=== PATIENT | female | born 1965 | race Caucasian/White ===

== ENCOUNTER 2021-09-25 08:28 | Outpatient (CLI) | payer MEDICARE, MEDICAID, SELFPAY ==
--- NOTE | ~2021-09-25 | PE_ITS ---
EXAMINATION: PET skull to mid thigh DATE: 09/25/2021 13:00 INDICATION: Lung mass. TECHNIQUE: Blood glucose level was 121 mg/dL. 10.609 mCi of 18-fluorodeoxyglucose (18-FDG) was admini stered i.v. Low dose computed tomography (CT) images were acquired from the base of the brain to the proximal thighs for attenuation correction and anatomic localization. Automated exposure control was employed. Dose-length product (DLP) was 842 mGy-cm. Positron emission tomography (PET) images were ac quired in the same distribution. COMPARISON: CT abdomen and pelvis 09/02/2015 FINDINGS: Head/neck: There is increased activity in the oral cavity, major salivary glands, and glottis without CT correlate, likely physiologic. There are no pathologically enlarged lymph nodes. Chest: There is mild emphysema. There is a 1.3 cm nodule in right lower lobe with maximum SUV of 2.1. No pleural effusion. The heart size is normal. No pericardial effusion. Abdomen/pelvis/proximal thighs: The liver is normal. The gallbladder is absent. The spleen, pancreas, adrenal glands, and kidneys are normal. There are no dilated loops of bowel. There is an anastomosis in the sigmoid colon. The appendix is not visualized. There are no pathologically enlarged lymph nod es. There is no free intraperitoneal fluid. There is an umbilical hernia containing fat. There is a b enign bone island in left ischium. IMPRESSION: 1. 1.3 cm nodule in right lung lower lobe with maximum SUV of 2.1 suspicious for primary bronchogeni c carcinoma. CT-guided biopsy is recommended. Reviewed, dictated and finalized at location A. ROLLING MACHINE TENDER IMPRESSION: 1. 1.3 cm nodule in right lung lower lobe with maximum SUV of 2.1 suspicious f or primary bronchogenic carcinoma. CT-guided biopsy is recommended.
[2021-09-25 09:27] LABS: Glucose Point of Care 121 mg/dl (65-105)
== END 2021-09-25 08:29 | disposition home or self-care (01) ==
LOC: ANHIMG 08:33
PROVIDERS: PCP Internal Medicine; Visit Provider Nurse Practitioner
DX: R91.8 Other nonspecific abnormal finding of lung field (principal); R91.1 Solitary pulmonary nodule
CPT/HCPCS: 78815; A9552

== ENCOUNTER → 2021-10-11 00:05 | Outpatient (CLI) | payer MEDICARE, MEDICAID, SELFPAY ==
[2021-10-11 12:38] LABS: SARS-CoV-2 RNA PCR Negative
== END ==
PROVIDERS: Radiology Diagnostic Radiology; PCP Internal Medicine; Visit Provider Nurse Practitioner
DX: Z01.812 Encounter for preprocedural laboratory examination (principal); Z20.822 Contact with and (suspected) exposure to COVID-19
CPT/HCPCS: C9803; U0003; U0005

== ENCOUNTER 2021-10-15 08:39 | Outpatient (CLI) | payer MEDICARE, MEDICAID, SELFPAY ==
[2021-10-08 11:17] VITALS: BMI 33.8
--- NOTE | 2021-10-08 11:27 | PC.NURSE ---
Report to the Outpatient Waiting Room, entrance under the green pavilion located off [facility], at time 0900 on date 10/15/21. OR Time: 1100. - You will be asked a series of questions to screen for COVID 19 for your protection. - A mask is required within the hospital. - No visitors are allowed at this time. Preoperative COVID Testing Requirements: COVID TEST 10/11 AT 0950 No COVID Test needed if: (proof is required; if not received patient will have Rapid Test prior to entry) - Patient has received COVID Vaccine at least 14 days prior to procedure date or - Patient has positive COVID test result within last 90 days of surgery date. COVID Test needed if above criteria is not met If not COVID vaccinated a COVID test must be conducted within 72 hours of surgery and patient is asked to isolate self from time of testing until procedure. You will go to the [facility] for your COVID testing. The [facility] is located at the corner of [address] [facility]. You will only be called if COVID results are positive and your surgeon may reschedule your elective surgery date. - No food OR DRINK FOR 6 HOURS PRIOR TO PROCEDURE Take the following medications with a SIP of water the morning of surgery: NONE Medications to discontinue per physician: ASPIRIN Date to take last dose: 7 DAYS PRIOR TO PROCEDURE Please no make-up, nail indian, hairspray, perfume, deodorant, or body powder the day of surgery. No jewelry (including any body piercings) or valuables the day of surgery, leave them at home. Please take a shower or bath the night before, or the morning of, surgery with an antibacterial soap. Wear comfortable, loose fitting clothing. - Jewelry must be removed prior to entering the operating room. Rings and piercings that are not removed may be cut off. - The hospital will not accept responsibility for valuables. - Please leave all valuables, including medications, at home the day of surgery. If you are going home after surgery, a licensed haul truck driver must drive you home. - NO public transportation without another adult. - We recommend that an adult stay with you for 24 hours following discharge. - We also recommend that you do not drive, make important decision, drink alcoholic beverages, or take any drugs that were not prescribed by your health care provider for at least 24 hours after your discharge time. Follow any additional instructions given to you from your surgeon. Telephone instructions given to ALEXYS NGUYEN and asked if any additional questions and then verbalized understanding. Patient advised to call surgeon office or pre surgery nurse liaison [phone] if any additional questions.
[2021-10-15] VITALS (8 sets, daily range): BP systolic 104–148; BP diastolic 59–72; PULSE 75–86; RESP 16; TEMP 36.7; O2SAT 97–99
--- NOTE | ~2021-10-15 | CT_ITS ---
EXAMINATION: CT biopsy lung w/imaging DATE: 10/15/2021 11:21 INDICATION: Right lung lower lobe nodule. TECHNIQUE: The procedure including the risks, benefits, and alternatives and possibility of chest tub e placement were discussed with the patient. Risks discussed included infection, approximately 1/20 r isk of symptomatic hemorrhage beyond mild hemoptysis, approximately 1/3 risk of pneumothorax, approxi mately 1/10 risk of pneumothorax severe enough to warrant chest tube placement, and rarely . The patient understood the risks and agreed to proceed. The patient was placed prone. The skin overlyin g the right chest was prepped and draped in sterile fashion. Anesthetic was administered with 1% lid ocaine subcutaneously. A 19 gauge outer needle was advanced under CT guidance to the lesion of inter est. A 20 gauge core biopsy needle was then used to obtain 3 core biopsy specimens. The needle was re moved and the entry site was cleaned and dressed. The mA was adjusted according to patient size. Iter ative reconstruction technique was employed. The dose-length product was 217.08 mGy-cm. The patient e xperienced hemoptysis at the end of procedure. She denied shortness of breath or chest pain. FINDINGS: CT images demonstrate the outer needle tip adjacent to a 13 mm nodule in right lung lower l obe. There is acute hemorrhage around the nodule. IMPRESSION: 1. CT-guided core needle biopsy of a 13 mm nodule in right lung lower lobe. Reviewed, dictated and finalized at location A. MING MACHINE OPERATOR
--- NOTE | ~2021-10-15 | XR_ITS ---
EXAMINATION: XR chest 1V portable DATE: 10/15/2021 14:29 INDICATION: Right lung lower lobe nodule status post percutaneous biopsy. TECHNIQUE: A single frontal view of the chest was obtained. COMPARISON: Chest single view at 12:25 PM FINDINGS: The chest demonstrates clear lungs without pneumonia, pleural effusion, or pneumothorax. Th e heart size is normal. IMPRESSION: 1. No acute cardiopulmonary disease. Reviewed, dictated and finalized at location A. RAM DIRECTOR AIR TALENT
--- NOTE | ~2021-10-15 | XR_ITS ---
EXAMINATION: XR chest 1V portable DATE: 10/15/2021 12:42 INDICATION: Right lung lower lobe nodule status post percutaneous biopsy. TECHNIQUE: A single frontal view of the chest was obtained. COMPARISON: Chest single view at 11:21 AM FINDINGS: The chest demonstrates clear lungs without pneumonia, pleural effusion, or pneumothorax. Th e heart size is normal. IMPRESSION: 1. No acute cardiopulmonary disease. Reviewed, dictated and finalized at location A. T RECRUITER
--- NOTE | ~2021-10-15 | XR_ITS ---
EXAMINATION: XR chest 1V DATE: 10/15/2021 11:23 INDICATION: Right lung lower lobe nodule status post percutaneous biopsy. TECHNIQUE: A single frontal view of the chest was obtained. COMPARISON: Chest CT 10/15/2021 FINDINGS: The chest demonstrates clear lungs without pneumonia, pleural effusion, or pneumothorax. Th e heart size is normal. IMPRESSION: 1. No acute cardiopulmonary disease. Reviewed, dictated and finalized at location A. ROOM COORDINATOR
[2021-10-15 09:50] LABS: Mean Platelet Volume 11.9 fl (7.4-10.4); Platelet Count Result 194 k/mm3 (150-375)
[2021-10-15 10:08] LABS: Prothrombin Time 12.6 Seconds (11.1-14.7)
--- NOTE | 2021-10-15 14:21 | SUR.PHASEII ---
[id number] seymour to get the ok for patient to have ice chips, dr seymour is ok with this
--- NOTE | 2021-10-15 14:50 | SUR.PHASEII ---
[address] seymour about final chest xray results, he looked at it and it looked good, patient is doing well on room air, bp stable, no pain. per dr seymour patient is ok for discharge
== END 2021-10-15 14:54 | disposition home or self-care (01) ==
PROVIDERS: PCP Internal Medicine; Visit Provider Radiology Diagnostic Radiology
PROC: BB24ZZZ Computerized Tomography (CT Scan) of Bilateral Lungs (ICD-10-PCS; CPT 32408; principal; 2021-10-15 11:00)
DX: C34.31 Malignant neoplasm of lower lobe, right bronchus or lung (principal)
CPT/HCPCS: 32408; 36415; 71045; 85049; 85610; 88305; 88342

== ENCOUNTER 2022-02-09 00:35 | Day surgery (SDC) | payer MEDICARE, MEDICAID, SELFPAY ==
[2022-01-22 13:12] VITALS: BMI 33.2
[2022-02-09 11:08] VITALS: BP 143/81; PULSE 83; RESP 18; TEMP 36.6; O2SAT 100
--- NOTE | 2022-02-09 11:17 | PM.IMHP ---
H&P: HPI History of Present Illness Date/Time: 02/09/22 11:17 Chief Complaint: History of colon polyps. Narrative: This is a 57-year-old white female patient seen in evaluation for neoplasia screening. Patient has a history of adenomatous colon polyp removed than colon 2016. She presents today for follow-up surveillance colonoscopy. Patient reports she recently has been diagnosed and treated for lung carcinoma. She has undergone chemotherapy and radiation. And awaits follow-up to determine status of disease. Review of Systems Review of Systems: noncontributory review of systems [facility] Family History Family History (Updated 12/08/13 @ 22:43 by DOCTOR UNKNOWN) Grandparent Diabetes mellitus Mother Patient's mother is Social History Social History Smoking packs per day: 1 Smoking cigarettes per day: 20.0 Years smoked: 40 Smoking pack-years: 40.00 Smoking status: Current every day smoker Tobacco type: cigarettes Second hand tobacco smoke exposure: No Smoking end date: 08/30/00 Alcohol intake: never Drinks per week: 4 Substance use: never Substance use type: does not use Living arrangements: with family Additional living arrangements comments: NIECE Gender identity (if verbalized by the patient): Female Sexual Orientation (if Verbalized by the Patient): Straight or Heterosexual Spiritual care concerns: No Meds Home Medications and Allergies Home Medications Medication Instructions Recorded Confirmed Type albuterol sulfate 1.25 mg/3 mL 1.25 mg inhalation Q4H PRN 10/08/21 01/22/22 History solution for nebulization Bronchospasm albuterol sulfate 90 mcg/actuation 1 puff inhalation QID PRN 10/08/21 01/22/22 History aerosol inhaler (Ventolin HFA) Bronchospasm aspirin 81 mg chewable tablet 81 mg PO DAILY 10/08/21 01/22/22 History budesonide 160 mcg-glycopyr 9 2 inh inhalation BID 10/08/21 01/22/22 History mcg-formot 4.8 mcg/actuation HFA inhaler (Breztri Aerosphere) losartan 25 mg tablet 25 mg PO DAILY 10/08/21 01/22/22 History montelukast 10 mg tablet 10 mg PO DAILY 10/08/21 01/22/22 History (Singulair) rosuvastatin 40 mg tablet (Crestor) 40 mg PO DAILY 10/08/21 01/22/22 History topiramate 200 mg tablet (Topamax) 200 mg PO BID 10/08/21 01/22/22 History hydrochlorothiazide 12.5 mg capsule 12.5 cap PO DAILY 01/22/22 01/22/22 History Allergies Allergy/AdvReac Type Severity Reaction Status Date / Time codeine AdvReac Severe Nausea and Verified 02/09/22 11:06 Vomiting Vital Signs Vital Signs - 24 hr 02/09/22 11:08 Temperature 98 F Pulse Rate 83 Respiratory Rate 18 Blood Pressure 143/81 H Pulse Oximetry 100 Oxygen Delivery Room Air Exam Narrative: physical exam reveals patient to be alert. Vital signs stable. HEENT exam is unremarkable. Patient is anicteric. Lungs are clear to auscultation and percussion. Heart is without murmur or extra sounds. Abdominal exam bowel sounds present soft nontender with no organomegaly. Digital external rectal exam is normal. Assessment and Plan Assessment and plan (1) History of colon polyps: Code(s): Z86.010 - Personal history of colonic polyps Status: Acute Assessment and Plan: Patient has a prior history of colon polyps. Plan is for surveillance colonoscopy at this time. Further recommendations will be given after endoscopy.
[2022-02-09] MEDS: LACTATED RINGERS 1,000 ML 150 ML IV CONT (11:18)
--- NOTE | 2022-02-09 11:27 | WPDANESEPPF ---
Anes - Initial Pre Proc Eval Procedure: Operation Date: 02/09/22 12:30 Proposed Procedures p Screening Colonoscopy - Lawrence Christianson MD Date/Time: 02/09/22 11:27 Surgeon: Lawrence Christianson MD Pre Op Diagnosis: hx of colon polyps Patient Data Age: 57 Gender: F Height: 1.6 m Weight: 86.8 kg Last Vital Signs Temp 36.6 C 02/09/22 11:08 Pulse 83 02/09/22 11:08 Resp 18 02/09/22 11:08 BP 143/81 H 02/09/22 11:08 Pulse Ox 100 02/09/22 11:08 O2 Del Method Room Air 02/09/22 11:08 Allergies Allergy/AdvReac Type Severity Reaction Status Date / Time codeine AdvReac Severe Nausea and Verified 02/09/22 11:06 Vomiting Home Medications Medication Instructions Recorded Confirmed Type albuterol sulfate 1.25 mg/3 mL 1.25 mg inhalation Q4H PRN 10/08/21 01/22/22 History solution for nebulization Bronchospasm albuterol sulfate 90 mcg/actuation 1 puff inhalation QID PRN 10/08/21 01/22/22 History aerosol inhaler (Ventolin HFA) Bronchospasm aspirin 81 mg chewable tablet 81 mg PO DAILY 10/08/21 01/22/22 History budesonide 160 mcg-glycopyr 9 2 inh inhalation BID 10/08/21 01/22/22 History mcg-formot 4.8 mcg/actuation HFA inhaler (Breztri Aerosphere) losartan 25 mg tablet 25 mg PO DAILY 10/08/21 01/22/22 History montelukast 10 mg tablet 10 mg PO DAILY 10/08/21 01/22/22 History (Singulair) rosuvastatin 40 mg tablet (Crestor) 40 mg PO DAILY 10/08/21 01/22/22 History topiramate 200 mg tablet (Topamax) 200 mg PO BID 10/08/21 01/22/22 History hydrochlorothiazide 12.5 mg capsule 12.5 cap PO DAILY 01/22/22 01/22/22 History Patient hx anesthesia problems: none Family hx anesthesia problems: none Results Review: All pre-operative results and documents have been reviewed as part of the pre-operative evaluation. [facility] Past Medical History Medical History (Updated 02/09/22 @ 11:29 by Jermaine Lazo MD) Anxiety disorder, unspecified Chronic obstructive pulmonary disease, unspecified Essential (primary) hypertension Low back pain Lung cancer Nicotine dependence, unspecified, uncomplicated Obesity Other hyperlipidemia Family History Family History (Updated 12/08/13 @ 22:43 by DOCTOR UNKNOWN) Grandparent Diabetes mellitus Mother Patient's mother is Social History Social History Smoking packs per day: 1 Smoking cigarettes per day: 20.0 Years smoked: 40 Smoking pack-years: 40.00 Smoking status: Current every day smoker Tobacco type: cigarettes Second hand tobacco smoke exposure: No Smoking end date: 08/30/00 Alcohol intake: never Drinks per week: 4 Substance use: never Substance use type: does not use Living arrangements: with family Additional living arrangements comments: NIECE Gender identity (if verbalized by the patient): Female Sexual Orientation (if Verbalized by the Patient): Straight or Heterosexual Spiritual care concerns: No Anes - Eval Final PreProcedure Day of Procedure 02/09/22 11:27 Patient weight: obese Heart: regular rate and rhythm Lungs: clear to auscultation and normal air movement Airway: Mallampati scale class II Neurological: alert and oriented Last oral intake: >/= 8 hours ASA classification: III Emergent: no Anesthetic plan: proceed Anesthesia type and monitoring: general GIVS Results Review: All pre-operative results and documents have been reviewed as part of the pre-operative evaluation. Informed Consent: The patient's anesthetic plan and its attendant risks and benefits were discussed with the patient/family/POA. Questions were solicited and answers provided to the satisfaction of the patient/family/POA.
[2022-02-09] MEDS: SIMETHICONE ORAL SUSPENSION 20 MG/0.3 ML 30 ML BOTTLE 0.6 ML IRRIGATION (11:57)
[2022-02-09 12:06] VITALS: BP 129/68; PULSE 81; RESP 24; O2SAT 100
--- NOTE | 2022-02-09 12:06 | SUR.OPER ---
LILIBETH verified that 2 transverse colon polyps were collected in one container and 1 transverse and 1 ascending colon polyps were collected in another container with dr. garcia
[2022-02-09 12:16] VITALS: BP 124/73; PULSE 77; RESP 23; O2SAT 100
[2022-02-09 12:26] VITALS: BP 126/72; PULSE 71; RESP 29; O2SAT 100
== END 2022-02-09 12:30 | disposition home or self-care (01) ==
PROVIDERS: PCP Internal Medicine; Visit Provider Internal Medicine Gastroenterology
PROC: 0DJD8ZZ Inspection of Lower Intestinal Tract, Via Natural or Artificial Opening Endoscopic (ICD-10-PCS; CPT 45378; principal; 2022-02-09 12:30)
DX: Z12.11 Encounter for screening for malignant neoplasm of colon (principal); D12.2 Benign neoplasm of ascending colon; D12.3 Benign neoplasm of transverse colon; K64.8 Other hemorrhoids; Z79.82 Long term (current) use of aspirin; Z79.51 Long term (current) use of inhaled steroids; F41.9 Anxiety disorder, unspecified; I10 Essential (primary) hypertension; E78.5 Hyperlipidemia, unspecified; J44.9 Chronic obstructive pulmonary disease, unspecified; F17.210 Nicotine dependence, cigarettes, uncomplicated; E66.9 Obesity, unspecified; Z68.33 Body mass index [BMI] 33.0-33.9, adult; Z92.3 Personal history of irradiation; Z92.21 Personal history of antineoplastic chemotherapy; Z85.118 Personal history of other malignant neoplasm of bronchus and lung
CPT/HCPCS: 45385; 88305; J2704; J7120

== ENCOUNTER 2022-08-27 09:59 | Outpatient (CLI) | payer MEDICARE, MEDICAID, SELFPAY ==
--- NOTE | 2022-08-27 11:00 | NEURO_ITS ---
Impression: # Complains of right hand numbness and stiffness. 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 # No Carpal Tunnel Syndrome. # Mildly abnormal needle/EMG exam. Motor Nerve Conduction Upper Extremities Median Nerve Conduction Velocity (m/sec) Terminal Latency (msec) Response Voltage(mV) Elbow-Wrist Wrist Elbow Wrist Right 60 2.8 6 8 Left 62 3.3 5 5 Ulnar Nerve Conduction Velocity (m/sec) Terminal Latency (msec) Response Voltage(mV) Above Elbow Below Elbow Wrist Above Elbow Below Elbow Wrist Right 46 50 2.5 5 6 7 Left 60 2.7 6 8 F-Wave Latency Median (ms) Ulnar (ms) Right 26.4 25.3 Left 26.3 25.3 Sensory Nerve Conduction Upper Extremities Median Nerve Stimulation Terminal Latency (msec) Wrist/Digit Response Voltage (uV) Wrist Right 2.7/2.7 97/89 Left 2.9/2.9 78/97 Ulnar Nerve Stimulation Terminal Latency (msec) Wrist/Digit Response Voltage (uV) Wrist Right 2.4 54 Left 2.3 66 Radial Nerve Terminal Latency (msec) Response Voltage(mV) Right 2.0 52 Left 2.2 48 Left Right Muscles Examined Fibrillation Fasciculation Scarcity Voltage Duration Left Right Left Right Left Right Left Right Left Right Deltoid Biceps X X Brachioradialis Triceps X X Pronator Teres X X Ext Indicis X X Ext Digitorum X X Abd Poll Brev X X 1st Dorsal Interosseus Reduced >12ms X X Abd Dig Min MTDD
== END 2022-08-27 10:00 | disposition home or self-care (01) ==
PROVIDERS: PCP Internal Medicine; Visit Provider Orthopaedic Surgery Hand Surgery
DX: M79.641 Pain in right hand (principal); M79.642 Pain in left hand; G56.21 Lesion of ulnar nerve, right upper limb
CPT/HCPCS: 95886; 95911

== ENCOUNTER 2024-09-25 13:39 | Outpatient (CLI) | payer MEDICARE, MEDICAID, SELFPAY ==
--- OUTSIDE RECORDS SUMMARY | 2024-09-25 14:26 | XMS_ITS | Continuity of Care Document ---
Author Organization [facility] Address [address] [place] [address] Phone Care Team Providers Care Blackjack Pit Boss Name Role Phone Jessika Horta Unavailable Unavailable Advance Directives Directive Yes / No Effective Date File Name No Information Encounters Encounter Description Practice Location Reason(s) For Visit Diagnoses Date Provider Providers Copied on Encounter [facility], [address], [place], [place], [id number], [place] tel:[phone] SEC [facility] No Information Nov-2 1-200 5 Rula Rosen. [address] , [address], [place], [address], [place]. tel:[phone] Family History Family Member Type Diagnosis Age At Onset No Information Payers Payer name Insurance type Covered green party ID Authoriza tion(s) Medicaid [facility] [id number] Social History Type Description Quantity Date Captured Comments Sex Female Smoking Status No Information Chief Complaint And Reason For Visit No Information Reason For Referral Reason For Referral No Information History Of Present Illness Encounter Date Complaint History Of Prese nt Illness No Information Functional Status Date Functional Assessmen t No Information Instructions Date Instruction Additional Infor mation No Information Assessments Type Assessment Date No Information Patient Care Teams Name Effective Dates (start - stop) Status Members No Information
--- OUTSIDE RECORDS SUMMARY | 2024-09-25 14:26 | XMS_ITS | Clinical Summary ---
Author Organization [facility] Facility Address [address] [place] [id number] Care Team Providers Care Assistant Merchandiser Name Role Phone Erica Malik MD Primary Care Provider [phone] Allergies Active Allergy Reactions Criticality Noted Date Comments Codeine Nausea And Vomiting, Other (see comments) Low 10/12/2019 Social History Tobacco Use Types Packs/Day Years Used Date Smoking Tobacco: Every Day Cigarettes Smokeless Tobacco: Never Alcohol Use Standard Drinks/Week Comments Yes 0 (1 standard drink = 0.6 oz pur e alcohol) Occ. Comments Unknown Sex and Gender Information Value Date Recorded Sex Assigned at Not on file Legal Sex Female 2:49 PM EDT Gender Identity Not on file Sexual Orientation Not on file Last Filed Vital Signs Vital Sign Reading Time Taken Comments Blood Pressure 112/60 06/17/2021 3:33 PM CDT Pulse 70 06/17/2021 3:33 PM CDT Temperature 35.8 ??C (96.4 ??F) 06/17/2021 3:33 PM CD T Respiratory Rate 18 06/17/2021 3:33 PM CDT Oxygen Saturation 99% 06/17/2021 3:33 PM CDT Inhaled Oxygen Concentration - - Weight 88.9 kg (196 lb) 06/17/2021 3:33 PM CDT Height 160 cm (5' 3 ) 06/17/2021 3:33 PM CDT Body Mass Index 34.72 06/17/2021 3:33 PM CDT Plan of Treatment Health Maintenance Due Date Last Done Comments Breast Cancer Screening 1965 Hepatitis B Vaccine (1 of 3 - 19+ 3-dose series) 02/06/1984 Colorectal Cancer Screening: Annual FOBT 2014 Colorectal Cancer Screening: Colonoscopy 2014 Colorectal Cancer Screening: Sigmoidoscopy 2014 Pneumococcal Vaccine: Pediat rics (0 to 5 Years) and At-Risk Patients (6 to 64 Years) (2 of 2 - PCV) 02/28/2015 02/28/2014 Influenza Vaccine (#1) 2024 05/30/2021, 2015 Insurance MEDIC[place] [address] Care Teams Assistant Merchandiser Relationship Specialty Start Date End Date Erica Malik MD [address] [place], [place] [address], [address] [place] [address] PCP - General Internal Medicine 06/16/21
--- OUTSIDE RECORDS SUMMARY | 2024-09-25 14:26 | XMS_ITS | CONTINUITY OF CARE DOCUMENT ---
Author Name candelaria gaona Address Unknown Organization [facility] Address [address] [place] [address] Phone [phone] Care Team Providers Care Chip Mixing Machine Operator Name Role Phone Bong Olivarez MD Unavailable RENETTA BURGER DO Unavailable RENETTA BURGER DO Unavailable INSURANCE PROVIDERS Payer name Policy type / Coverage type [place] red green party ID [employer] [employer] Medicaid 1 [id number] [place] MED[place] Medicare [id number]
--- OUTSIDE RECORDS SUMMARY | 2024-09-25 14:26 | XMS_ITS | Referral Summary ---
Author Organization [facility] Address [address] [place] [address] Care Team Providers Care Dispatch Lead Name Role Phone Ector Malik MD Primary Care Provide r Katlin Lorenzo NP Unavailable [phone] Hui Dickey MD Unavailable Efren Joseph MD Unavailable Val Roldan MD Unavailable Elma Nieto NP Unavailable Encounters Date Type Department Care Team Description 09/07/2024 2:40 PM INVESTMENT BANKING MANAGER Office Visit [facility] Advanced Medicine Radiation Oncology [address] [address] Elma Nieto NP Malignant neoplasm of lung, unspecified laterality, unspecified part of lung (HCC) [C34.90] (Primary Dx); Radiotherapy follow-up examination [Z09]; Non-small cell cancer of right lung (HCC) [C34.91] 09/07/2024 1:27 PM INVESTMENT BANKING MANAGER - 09/07/2024 11:59 PM INVESTMENT BANKING MANAGER Hospital Encounter [facility] [address] [place], [place] [id number] Radiotherapy follow-up examination; Non-small cell cancer of right lung (HCC) Discharge Disposition: Discharge to home or self care from Last 3 Months Allergies Active Allergy Reactions Criticality Noted Date Comments Codeine Other (See comments) Low 10/12/2019 Medications cyclobenzapri ne (FLEXERIL) 10 mg tablet Take 1 tablet (10 mg total) by mouth daily as needed 09/22/19 Active ergocalcifero l (VITAMIN D) 50,000 unit capsule once a week Active fluticasone propionate (FLONASE) 50 mcg/actuation nasal spray Active furosemide (LASIX) 20 mg tablet 09/07/19 Active montelukast (SINGULAIR) 10 mg tablet Take 1 tablet (10 mg total) by mouth daily 09/22/19 Active rosuvastatin (CRESTOR) 40 mg tablet daily Active topiramate (TOPAMAX) 200 mg tablet Take 1 tablet (200 mg total) by mouth 2 (two) times a day 60 tablet 1 08/13/20 Active hydroCHLOROth iazide (MICROZIDE) 12.5 mg capsule daily Active aspirin 81 mg enteric coated tablet daily Active losartan (COZAAR) 25 mg tablet Take 1 tablet (25 mg total) by mouth daily Active nicotine (NICODERM CQ) [address] 1 patch on the skin daily 30 patch 11/07/19 22 Active Additional Information Patient not taking.Reported on 06/21/2024 busPIRone (BUSPAR) 5 mg tablet 11/08/19 22 Active magnesium oxide 200 mg magnesium tablet every 12 hours Activ e potassium chloride ER 20 mEq CR tablet 01/16/20 22 Active nebulizer and compressor device Active levothyroxine (SYNTHROID) 75 mcg tablet levothyroxine 75 mcg tablet TAKE 1 TABLET BY MOUTH DAILY Active nystatin 100,000 unit/mL suspension 05/25/20 23 Active levoFLOXacin (LEVAQUIN) 500 mg tablet 05/25/20 23 Active escitalopram (LEXAPRO) 10 mg tablet Take 1 tablet (10 mg total) by mouth daily Active cholecalcifer ol (VITAMIN D-3) 50,000 unit capsule Take 1 capsule every week by oral route for 60 days. 12/02/19 23 Active buPROPion SR (WELLBUTRIN SR) 150 mg 12 hr tablet Take 1 tablet twice a day by oral route. Active fexofenadine (ESTEBAN) 180 mg tablet Take 1 tablet (180 mg total) by mouth daily Active albuterol HFA (PROVENTIL HFA,VENTOLIN HFA,PROAIR HFA) 90 mcg/actuation inhaler Inhale 2 puffs every 6 (six) hours as needed for wheezing or shortness of breath 8 g 08/14/20 24 Active budesonide-gl ycopyr-formot daniela (Breztri Aerosphere) 160-9-4.8 mcg/actuation inhaler Inhale 2 puffs 2 (two) times a day 10.7 each 08/14/20 24 Active albuterol 2.5 mg /3 mL (0.083 %) nebulizer solutionIndic ations:Centri lobular emphysema (HCC) Take 3 mL (2.5 mg total) by nebulization every 4 (four) hours as needed for wheezing 3 mL 09/11/19 25 025 Active albuterol 2.5 mg /3 mL (0.083 %) nebulizer solution Take 3 mL (2.5 mg total) by nebulization 4 (four) times a day as needed for wheezing or shortness of breath 360 mL 11/09/19 24 025 Discontinued Active Problems Patient Care Coordination No te Formatting of this note migh t be different from the original. This is a 56-year-old female presenting to us with a newly diagnosed lung cancer. She has a medical history significant for depression, COPD, osteoarthritis, diabetes and hyperlipidemia. She is a current smoker and underwent a lung cancer screening CT scan on 02/19/2021 which demonstrated COPD changes with a thick-walled cavitary lesion measuring 1 cm in the superior segment of the right lower lobe. She underwent a follow-up CT of the chest without contrast on 06/03/2021 that demonstrated a cavitary lesion in the superior segment of the right lower lobe measuring 10 x 10 mm. She underwent another CT on 09/10/2021 that demonstrated an increased size of a right lower lobe cavitary lesion measuring 14 mm with an increased solid component compared to 05/2021. There is moderate centrilobular emphysema. She underwent a PET scan on 09/25/2021 at [facility] that showed mild FDG uptake in a 1.2 cm solid right lower lobe pulmonary nodule with a maximum SUV of 2.1. There is no hypermetabolic lymphadenopathy in the chest. Asymmetric uptake in the vocal cords increased in the right, with minimal left vocal cord uptake. She underwent a CT-guided needle biopsy on 10/15/2021 that demonstrated non- small cell carcinoma, favor at no squamous carcinoma. She feels quite well. She denies any coughing or hemoptysis. She can walk a block without stopping but cannot climb 2 flights of stairs. She is here for further surgical evaluation and discussion. Problem Noted Date Diagnosed Date Centrilobular emphysema 02/14/2024 Assessment & Plan (06/21/2024 3:18 PM CDT): Continue Breztri two puffs BID Albuterol as needed only, discussed indications for use She is aware of signs and symptoms that would require earlier evaluation or change to plan of care Assessment & Plan (02/14/2024 3:43 PM CDT): Continue Breztri two puffs BID Albuterol as needed only, discussed indications for use Neck pain 11/30/2022 Pain of both hip joints 11/30/2022 Pain of both shoulder joints 11/30/2022 Proteinuria 11/30/2022 Type 2 diabetes mellitus without complication (C MS/HCC) 11/30/2022 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 Vitamin D deficiency 11/30/2022 Lung nodule 11/30/2022 Environmental allergies 11/30/2022 Chronic kidney disease 11/30/2022 Chronic recurrent major depressive disorder 10/2022 Hyperlipidemia 11/30/2022 Malignant neoplasm of lung 11/30/2022 Assessment & Plan (06/21/2024 3:15 PM CDT): Stage IA2 (cT1b, cN0, cM0) Biopsy-proven squamous cell carcinoma She completed definitive SBRT to RLL to 55 Gy/5 fx on 12/22/2021 Continue to follow with Oncology, her next CT scan is scheduled for July Assessment & Plan (02/14/2024 3:42 PM CDT): Biopsy-proven squamous cell carcinoma Treated with SBRT Continue to follow with Oncology, her next CT scan is scheduled for next month Arthralgia of right elbow 10/01/2022 Pain in both hands 05/19/2022 Radiotherapy follow-up examination 03/24/2022 Hypokalemia 01/29/2022 Hypothyroidism 01/29/2022 Non-small cell lung cancer 10/22/2021 Cancer Staging:Clinical stage from 10/15/2021:Stage IA2(cT1b, cN0, cM0) - Signed by Nedra Mcmillan DNP on 11/05/2021 Cavitary lesion of lung 10/08/2021 Dyspnea 10/08/2021 Cavitary lesion of lung 10/07/2021 Lesion of lung 10/07/2021 Edema 10/02/2021 Essential hypertension 10/02/2021 Lung mass 10/02/2021 Cigarette nicotine dependence without complicati on 07/30/2021 Assessment & Plan (06/21/2024 3:17 PM CDT): - Smoking cessation counseling and techniques reviewed at length - Avoid triggers and use distraction techniques - She is aware [place] Tobacco Quit line: 0-533-WUXA-YES for free services - 4 minutes spent discussing cessation Assessment & Plan (02/14/2024 3:44 PM CDT): - Smoking cessation counseling and techniques reviewed at length - Avoid triggers and use distraction techniques - Information given regarding [place] Tobacco Quit line: 0-498-UMEL-YES for free services - 4 minutes spent discussing cessation Erythrocytosis 05/22/2020 Adhesive capsulitis of shoulder 10/12/2019 Low back pain 10/12/2019 Mixed anxiety and depressive disorder 10/12/2019 Acute exacerbation of chronic obstructive airway s disease 10/12/2019 Disorder of shoulder 10/12/2019 Obesity 10/12/2019 Osteoarthritis 10/12/2019 Smoker 10/12/2019 Acute upper respiratory infection 10/12/2019 Social History Tobacco Use Types Packs/Day Years Used Date Smoking Tobacco: Every Day Cigarettes 1 43 Started: 1979 Smokeless Tobacco: Never Tobacco Cessation:Ready to Q uit: Not Asked; Counseling Given: Not Answered Comments Unknown Sex and Gender Information Value Date Recorded Sex Assigned at Not on file Legal Sex Female 3:24 PM INVESTMENT BANKING MANAGER Gender Identity Not on file Sexual Orientation Not on file Last Filed Vital Signs Vital Sign Reading Time Taken Comments Blood Pressure 110/60 06/21/2024 1:06 PM CDT Pulse 82 06/21/2024 1:06 PM CDT Temperature 36.7 ??C (98 ??F) 06/21/2024 1:06 PM CDT Respiratory Rate 18 06/21/2024 1:06 PM CDT Oxygen Saturation 98% 06/21/2024 1:06 PM CDT Inhaled Oxygen Concentration - - Weight 77.2 kg (170 lb 1.6 oz) 09/07/2024 2:36 P M INVESTMENT BANKING MANAGER Height 157.5 cm (5' 2 ) 09/07/2024 2:36 PM INVESTMENT BANKING MANAGER Body Mass Index 31.11 09/07/2024 2:36 PM INVESTMENT BANKING MANAGER Plan of Treatment Not on file Procedures Procedure Name Priority Date/Time Associated Diagnosis Comments CT CHEST WO CONTRAST Routine 09/07/2024 2:27 PM INVESTMENT BANKING MANAGER Radiotherapy follow-up examination Non-small cell cancer of right lung (HCC) from Last 3 Months Results * CT Chest WO Contrast (09/07/2024 2:27 PM INVESTMENT BANKING MANAGER) Anatomical Region Laterality Modality Body N/A Computed Tomogra phy 09/07/2024 2:48 PM INVESTMENT BANKING MANAGER Impressions 09/07/2024 3:37 PM INVESTMENT BANKING MANAGER Stable posttreatment changes in the right lower lobe with unchanged small pulmonary nodule. No evidence of disease progression. Dictated by: Frannie Hair MD The radiology attending physician has personally reviewed this study, and had reviewed and/or edited this written report and agrees with it. Electronically signed by: Adebayo Rose M.D. Narrative 09/07/2024 3:37 PM INVESTMENT BANKING MANAGER EXAMINATION: ??Computed tomography of the chest without intravenous contrast HISTORY: Non-small cell lung cancer TECHNIQUE: ??Transaxial computed tomographic images of the chest were obtained without intravenous contrast according to the standard protocol. COMPARISON: 02/24/2024 FINDINGS: ?? Stable radiation changes in the super segment of the right lower lobe with stable adjacent thickening. ??Centrilobular emphysema. ??Upper lobe predominant centrilobular nodules, likely related to respiratory bronchiolitis. ??Stable right lower lobe 5 mm pulmonary nodule, series 3 image 95. No pleural effusion or pneumothorax. ??Patent central airways. ??Normal heart size. ??No pericardial effusion. ??Coronary arterial calcifications. ??No thoracic lymphadenopathy. ??Imaged upper abdomen shows normal portions of the solid organs and gastrointestinal tract. Procedure Note Adebayo Rose MD - 09/07/2024 EXAMINATION: Computed tomography of the chest without intravenous contrast HISTORY: Non-small cell lung cancer TECHNIQUE: Transaxial computed tomographic images of the chest were obtained without intravenous contrast according to the standard protocol. COMPARISON: 02/24/2024 FINDINGS: Stable radiation changes in the super segment of the right lower lobe with stable adjacent thickening. Centrilobular emphysema. Upper lobe predominant centrilobular nodules, likely related to respiratory bronchiolitis. Stable right lower lobe 5 mm pulmonary nodule, series 3 image 95. No pleural effusion or pneumothorax. Patent central airways. Normal heart size. No pericardial effusion. Coronary arterial calcifications. No thoracic lymphadenopathy. Imaged upper abdomen shows normal portions of the solid organs and gastrointestinal tract. IMPRESSION: Stable posttreatment changes in the right lower lobe with unchanged small pulmonary nodule. No evidence of disease progression. Dictated by: Frannie Hair MD The radiology attending physician has personally reviewed this study, and had reviewed and/or edited this written report and agrees with it. Electronically signed by: Adebayo Rose M.D. Elma Nieto NP IM CT PROCEDURES Final Result from Last 3 Months Insurance MEDICARE [facility] MEDICARE MEDICAID GENERIC OTHER IDPA MEDICARE [facility] Address: [address] [address] [place] [address] IDPA Care Teams Dispatch Lead Relationship Specialty Start Date End Date Ector Malik MD [address] [place] [address] PCP - General Internal Medicine 09/21/19 Katlin Lorenzo NP [address] [place] [address] Nurse Practitioner Nurse Practitioner 10/22/21 Hui Dickey MD [address] [place] [address] Medical Oncologist/Felt Hat Mellowing Machine Operator Hematology and Oncology 10/29/21 Efren Joseph MD [address] [place] [address] Surgeon Thoracic Surgery 11/16/21 Val Roldan MD [address] [facility] [address] [place] [address] Radiation Oncologist Radiation Oncology 11/20/21 Elma Nieto NP [address] [facility] [address] [place] [address] Nurse Practitioner Radiation Oncology 03/18/23
--- OUTSIDE RECORDS SUMMARY | 2024-09-25 14:26 | XMS_ITS ---
Author Organization [facility] Address [address] [place] [address] Care Team Providers Care Elevator Installer Apprentice Name Role Phone Ector Malik MD Primary Care Provide r Katlin Lorenzo NP Unavailable [phone] Hui Dickey MD Unavailable [phone] Efren Joseph MD Unavailable Val Roldan MD Unavailable Elma Nieto NP Unavailable [phone] Active Problems Patient Care Coordination No te [...] underwent a PET scan on 09/25/2021 at [facility] that showed mild FDG uptake in a [...] use distraction techniques - She is aware [place] Tobacco Quit line: 5-349-XYCL-YES for free services - 4 minutes spent discussing cessation Assessment & Plan (02/14/2024 3:44 PM CDT): - Smoking cessation counseling and techniques reviewed at length - Avoid triggers and use distraction techniques - Information given regarding [place] Tobacco Quit line: 3-217-CLHN-YES for free services - 4 minutes spent discussing cessation Erythrocytosis 05/22/2020 Adhesive capsulitis of shoulder 10/12/2019 Low back pain 10/12/2019 Mixed anxiety and depressive disorder 10/12/2019 Acute exacerbation of chronic obstructive airway s disease 10/12/2019 Disorder of shoulder 10/12/2019 Obesity 10/12/2019 Osteoarthritis 10/12/2019 Smoker 10/12/2019 Acute upper respiratory infection 10/12/2019 Current Oncology Plans No current plan information found. Past Plans No past plan information found. Radiation Treatments * Plan Last Treated On Elapsed Days Fractions Treated Prescribed Fraction Dose Prescribed Total Dose Rt Lung SBRT:1 12/22/2021 6 4 1,100 cGy 4,400 cGy Rt Lung SBRT 12/16/2021 0 1 1,100 cGy 5,500 cGy Reference Point Last Treated On Elapsed Days Session Dose Total Dose [id number] 12/22/2021 6 1,100 cGy 5,500 cGy Lifetime Dose Tracking * Chemical Lifetime Dose Automatic Entry Manual Entr y Fluoro Time 0.167 minutes 0.167 minutes 0 minutes Air kerma at the reference point (Ka,r) 0.001 mGy 0 .001 mGy 0 mGy DLP 3,368 mGycm 3,368 mGycm 0 mGycm Treatment Summaries Non-small cell lung cancer (HCC)* Images from the original note were not included. [place] [id number] This Survivorship Care Plan is a cancer treatment summary and follow-up plan and is provided to youto keep with your health care records and to share with your primary care provider or any of your doctors and nurses. This summary is a brief record of major aspects of your cancer treatment not a detailed or comprehensive record of your care. You should review this with your cancer provider. Treatment Summary and Survivorship Care Plan for Non-Small Cell Lung Cancer General Information Patient name Stephie Sharp Phone There are no phone numbers on file. Date of 1965 Health Care Providers (Including Names, Institutions) Provider Name: Contact Information: Primary Care Physician Erica Malik MD [phone] Surgeon Efren Joseph MD [phone] Radiation Oncologist Val Roldan MD [phone] Medical Oncologist Hui Dickey MD [phone] Other Providers Treatment Summary Cancer Diagnosis Information Diagnosis Non-small cell lung cancer (CMS/HCC) (HCC) Diagnosis date 10/22/2021 Staging information Cancer Staging Non-small cell lung cancer (CMS/HCC) (HCC) Staging form: Lung, AJCC 8th Edition - Clinical stage from 10/15/2021: Stage IA2 (cT1b, cN0, cM0) - Signed by Nedra Mcmillan DNPon 11/05/2021 Treatment Completed Surgery No Radiation Radiation Treatments Active Plans Rt Lung SBRT Most recent treatment: Dose planned: 1,100 cGy (fraction 1 on 12/16/2021) Total: Dose planned: 5,500 cGy Elapsed Days: 0 Rt Lung SBRT:1 Most recent treatment: Dose planned: 1,100 cGy (fraction 4 on 12/22/2021) Total: Dose planned: 4,400 cGy Elapsed Days: 6 Reference Points [id number] Most recent treatment: Dose given: 1,100 cGy (on 12/22/2021) Total: Dose given: 5,500 cGy Elapsed Days: 6 Historical No historical radiation treatments to show. Systemic Therapy (chemotherapy, hormonal therapy, other) [No treatment plan] Lifetime Dose Tracking Lifetime Dose Tracking No doses have been documented on this patient for the following tracked chemicals: doxorubicin, epirubicin, idarubicin, daunorubicin, mitoxantrone, bleomycin, mitomycin, cyclophosphamide, carmustine,cisplatin, ifosfamide, carboplatin, fluorouracil, etoposide, doxorubicin HCl pegylated liposomal, et oposide phosphate, valrubicin, doxorubicin isotoxic equivalent Research Studies Persistent symptoms or side effects that have continued after finishing treatment: Other: : Treatment Ongoing: No Follow-up Care Plan Your follow-up care plan is design to inform you and primary care providers regarding the recommended and required follow-up, cancer screening and routine health maintenance that is needed to maintain optimal health. Schedule of Clinical Visits Coordinating Provider When/How often Val Roldan MD Every 3 months for first 2 years, then every 6 months for 3-5 years then yearly. Cancer Surveillance or other Recommended Tests Coordinating Provider Test How Often Val Roldan MD Chest Imaging Every 3 months for 2 years then every 6 months years 3-5, then yearly. All providers Monitor for long term care social worker cardiac toxicity. Erica Malik Monitor for long term care social worker toxicity Cardiac - congestive heart failure (CHF), coronary artery disease (CAD) Renal insufficiency- Creatinine Musculoskeletal - Chest wall pain Neurologic - neuropathy Hematologic - CBC Yearly Possible late- and long-term effects that someone with this type of cancer and treatment may experience: Constipation Hearing loss Kidney problems Peripheral neuropathy or numbness and tingling Pneumonitis or inflammation of the lung (6 weeks-6 months after treatment) * Pulmonary fibrosis or scarring (6 weeks-6 months after treatment) * Trouble with or painful swallowing * Chest wall toxicity between 9-12 months after radiation therapy * Please call your radiation oncologist if experiencing these late effects * Fatigue Many patients experience some level of fatigue. Some patients experience severe and ongoing fatigue. An active lifestyle with healthy sleep patterns can improve your energy levels. Talk to your provider about ongoing (more than 3 months) fatigue. Please continue to see your primary care provider for all general health care recommended for a person your age, including cancer screening tests. Any symptoms should be brought to the attention of your provider: Anything that represents a brand new symptom; Anything that represents a persistent symptom; Anything you are worried about that might be related to the cancer coming back. Cancer survivors may experience issues with the areas listed below. If you have any concerns in these or other areas, please speak with your doctors or nurses to find out how you can get help with them. Anxiety and depression Emotional and mental health Fatigue Fertility Financial advice or assistance Insurance Memory or concentration loss Parenting Physical functioning School/work Sexual functioning Stopping smoking Weight changes Other A number of lifestyle/behaviors can affect your ongoing health, including the risk for the cancer coming back or developing another cancer. Discuss these recommendations with your doctor or nurse: Eat a healthy diet: focus on more fruits, vegetables and whole grains. Maintain a healthy weight; avoid being overweight. Aim for a normal body mass index (BMI) of 18.5-24.9. Help learning to eat healthier, call the shipyard helper at: [facility] . Have an active lifestyle, strive for 30 minutes of moderate exercise 5 times a week and strength orresistance training at least twice a week. Use broad-spectrum (UVA+UVB) sunscreen with SPF 30 or greater, is water resistant, limit time spentin the sun (10 am-4pm), wear hat, wear UV protective clothing, wear sunglasses. Never use a tanningbed. Skin that was irradiated may be more sensitive over your lifetime. Do not smoke or chew tobacco; participate in a smoking cessation program. Limit alcohol intake, 1 drink per day for a woman and 2 drinks per day for a man. Resources you may be interested in: [facility] A National Cancer Ewing [facility] http://www.[facility] [place]/ [facility] & Cancer Information Center 1st floor of [facility] 152.775.8878. Computer access, educational material, counseling services (FREE) Cancer Resources: www.cancer.net [place] Disabilities Act: The U.S. Department of Justice provides information about the Americans with Disabilities Act (ADA). Toll free number http://www.ada.gov/ Occupational Therapy at [facility]. Improve memory and thinking following chemotherapy. Improve your performance at home, work and in the community. or Toll free www.ot.[facility] [place]/patients A service of [employer], a non-profit organization providing free, professional support - includingcounseling, support group, financial assistance, educational workshops and publications -to anyone coping with lung cancer. http://www.lungcancer.org/ We are a partnership of lung cancer survivors, advocates, researchers, healthcare professionals andplains regional medical centery leaders. And we are united in the belief that every person with lung cancer deserves a cure. http://www.freetobreathe.org/ Lung Cancer Connection is committed to organizing and funding community outreach programs aimed at those affected by lung cancer in the [facility]. http://www.lungcancerconnectioninc.org Cancer and Careers empowers and educates people with cancer to thrive in their workplace by providing expert advice, interactive tools and educational events. http://www.cancerandcareers.org/en/mdghmlt-fiu-zqdt Springboard Beyond Cancer: https://survivorship.cancer.gov/ an online tool for cancer survivors andcaregivers created by the [place] Cancer Society and the National Cancer Ewing. It provides: Information on dealing with side effects from cancer and treatment Caregivers with support and resources Practical advice about talking to friends and family about cancer Questions to ask their health care team
--- OUTSIDE RECORDS SUMMARY | 2024-09-25 14:26 | XMS_ITS | Clinical Summary ---
Author Organization [facility] Address [address] [place] [address] Care Team Providers Care Lube Attendant Name Role Phone Ector Malik MD Primary Care Provide r Katlin Lorenzo NP Unavailable [phone] Hui Dickey MD Unavailable [phone] Efren Joseph MD Unavailable [phone] Val Roldan MD Unavailable [phone] Elma Nieto NP Unavailable [phone] Allergies Active Allergy Reactions Criticality Noted Date Comments Codeine Other (See comments) Low 10/12/2019 Medications cyclobenzapri ne (FLEXERIL) 10 mg tablet Take 1 tablet (10 mg total) by mouth daily as needed 09/22/19 20 Active ergocalcifero l (VITAMIN D) 50,000 unit capsule once a week Active fluticasone propionate (FLONASE) 50 mcg/actuation nasal spray Active furosemide (LASIX) 20 mg tablet 09/07/19 20 Active montelukast (SINGULAIR) 10 mg tablet Take 1 tablet (10 mg total) by mouth daily 09/22/19 20 Active rosuvastatin (CRESTOR) 40 mg tablet daily Active topiramate (TOPAMAX) 200 mg tablet Take 1 tablet (200 mg total) by mouth 2 (two) times a day 60 tablet 1 08/13/20 20 Active hydroCHLOROth iazide (MICROZIDE) 12.5 mg capsule [...] wheezing or shortness of breath 8 g 11 08/14/20 24 Active budesonide-gl ycopyr-formot daniela (Breztri Aerosphere) 160-9-4.8 mcg/actuation inhaler Inhale 2 puffs 2 (two) times a day 10.7 each 11 08/14/20 24 Active albuterol 2.5 mg /3 mL (0.083 %) nebulizer solutionIndic ations:Centri lobular emphysema (HCC) Take 3 mL (2.5 mg total) by nebulization every 4 (four) hours as needed for wheezing 3 mL 11 09/11/19 25 025 Active albuterol 2.5 mg /3 mL (0.083 %) nebulizer solution Take 3 mL (2.5 mg total) by nebulization 4 (four) times a day as needed for wheezing or shortness of breath 360 mL 11 11/09/19 24 025 Discontinued Active Problems Patient [...] underwent a PET scan on 09/25/2021 at [facility] that showed mild FDG uptake [...] use distraction techniques - She is aware [place] Tobacco Quit line: 4-199-MYYF-YES for free services - 4 minutes spent discussing cessation Assessment & Plan (02/14/2024 3:44 PM CDT): - Smoking cessation counseling and techniques reviewed at length - Avoid triggers and use distraction techniques - Information given regarding [place] Tobacco Quit line: 7-545-GDFQ-YES for free services - 4 minutes spent discussing cessation Erythrocytosis 05/22/2020 Adhesive capsulitis of shoulder 10/12/2019 Low back pain 10/12/2019 Mixed anxiety and depressive disorder 10/12/2019 Acute exacerbation of chronic obstructive airway s disease 10/12/2019 Disorder of shoulder 10/12/2019 Obesity 10/12/2019 Osteoarthritis 10/12/2019 Smoker 10/12/2019 Acute upper respiratory infection 10/12/2019 Encounters Date Type Department Care Team Description 09/07/2024 2:40 PM SNOWBOARDING INSTRUCTOR Office Visit [facility] Advanced Medicine Radiation Oncology [address] [facility] Advanced Medicine [facility] [place] [address] Elma Nieto NP Malignant neoplasm of lung, unspecified laterality, unspecified part of lung (HCC) [C34.90] (Primary Dx); Radiotherapy follow-up examination [Z09]; Non-small cell cancer of right lung (HCC) [C34.91] 09/07/2024 1:27 PM SNOWBOARDING INSTRUCTOR - 09/07/2024 11:59 PM SNOWBOARDING INSTRUCTOR Hospital Encounter [facility] [address] [place] [address] Radiotherapy follow-up examination; Non-small cell cancer of right lung (HCC) Discharge Disposition: Discharge to home or self care from Last 3 Months Surgical History Surgery Date Site/Laterality Comments FLUORO GUIDED INJECTION SHOULDER LEFT 11/06/2019 Left SECTION x3 APPENDECTOMY 08/30/1985 - 08/29/1986 HYSTERECTOMY BLADDER REPAIR 10/27/2017 LAPAROSCOPIC COLON RESECTION 08/30/2017 - 08/29/2018 CHOLECYSTECTOMY SECTION 1984, 1985, 1988 ELBOW ARTHROSCOPY 09/30/2022 - 10/27/2022 Right Medical History Medical History Date Comments Chronic kidney disease Arthritis COPD (chronic obstructive pulmonary disease) (HC C) Non-small cell lung cancer (HCC) Malignant carcinoid tumor of lung (HCC) Hypothyroidism Diabetes mellitus, type II (HCC) Vitamin D deficiency Hyperlipidemia Hypokalemia Obesity Chronic major depressive disorder Mixed anxiety depressive disorder Nicotine dependence Smoker Chronic depression Upper respiratory infection Lesion of lung Lung nodule Vesicocolic fistula Osteoarthritis Neck pain Low back pain Edema Headache Mass of neck Dyspnea Proteinuria Abnormal mammogram Allergy to environmental factors Pain in joint, hand Pain in joint of right elbow Shoulder joint pain Family History Medical History Relation Name Comments No Known Problems Brother Diabetes Father Hypertension Father Kidney failure Father No Known Problems Maternal Grandfather Diabetes Maternal Grandmother Bipolar disorder Mother COPD Mother Hypertension Mother malignant neoplastic disorder Mother No Known Problems Paternal Grandfather No Known Problems Paternal Grandmother No Known Problems Sister Relation Name Status Comments Brother Father Maternal Grandfather Maternal Grandmother Mother Paternal Grandfather Paternal Grandmother Sister Social History Tobacco Use Types Packs/Day Years Used Date Smoking Tobacco: Every Day Cigarettes 1 43 Started: 1979 Smokeless Tobacco: Never Tobacco Cessation:Ready to Q uit: Not Asked; Counseling Given: Not Answered Comments Unknown Sex and Gender Information Value Date Recorded Sex Assigned at Not on file Legal Sex Female 3:24 PM SNOWBOARDING INSTRUCTOR Gender Identity Not on file Sexual Orientation Not on file Obstetrics History Last Filed Vital Signs Vital Sign Reading Time Taken Comments Blood Pressure 110/60 06/21/2024 1:06 PM CDT Pulse 82 06/21/2024 1:06 PM CDT Temperature 36.7 ??C (98 ??F) 06/21/2024 1:06 PM CDT Respiratory Rate 18 06/21/2024 1:06 PM CDT Oxygen Saturation 98% 06/21/2024 1:06 PM CDT Inhaled Oxygen Concentration - - Weight 77.2 kg (170 lb 1.6 oz) 09/07/2024 2:36 P M SNOWBOARDING INSTRUCTOR Height 157.5 cm (5' 2 ) 09/07/2024 2:36 PM SNOWBOARDING INSTRUCTOR Body Mass Index 31.11 09/07/2024 2:36 PM SNOWBOARDING INSTRUCTOR Plan of Treatment Health Maintenance Due Date Last Done Comments Albumin Creatinine Ratio, Urine 1965 Breast Cancer Screening-Mammogram 1965 Colon Cancer Screening-Colonoscopy 1965 Depression Screening 1965 Hemoglobin A1C 1965 Hepatitis C Screening 1965 eGFR 1965 Dilated Eye Exam 1965 Foot Exam 1965 Lipid Panel 1965 DTaP/Tdap/Td Vaccine (1 - Tdap) 02/06/1976 Hepatitis B Screening 1983 Regular Well Visit/Exam 18-64 1983 Zoster Vaccine (1 of 2) 2015 Pneumococcal vaccine <65 (2 of 2 - PCV) 02/28/2015 0 02/28/2014 Influenza Vaccine (#1) 2024 05/30/2016, 2015 Procedures Procedure Name Priority Date/Time Associated Diagnosis Comments CT CHEST WO CONTRAST Routine 09/07/2024 2:27 PM SNOWBOARDING INSTRUCTOR Radiotherapy follow-up examination Non-small cell cancer of right lung (HCC) from Last 3 Months Results * CT Chest WO Contrast (09/07/2024 2:27 PM SNOWBOARDING INSTRUCTOR) Anatomical Region Laterality Modality Body N/A Computed Tomogra phy 09/07/2024 2:48 PM SNOWBOARDING INSTRUCTOR Impressions 09/07/2024 3:37 PM SNOWBOARDING INSTRUCTOR Stable posttreatment changes in the right lower lobe with unchanged small pulmonary nodule. No evidence of disease progression. Dictated by: Frannie Hair MD The radiology attending physician has personally reviewed this study, and had reviewed and/or edited this written report and agrees with it. Electronically signed by: Adebayo Rose M.D. Narrative 09/07/2024 3:37 PM SNOWBOARDING INSTRUCTOR EXAMINATION: ??Computed tomography of the chest without [...] by: Adebayo Rose M.D. Elma Nieto NP IMG CT PROCEDURES Final Result from Last 3 Months Insurance MEDICARE [facility] Address: [facility] [address] [place] [address] [facility] MEDICARE MEDICAID GENERIC OTHER IDPA MEDICARE [facility] Address: [address] [address] [place] [address] IDPA Care Teams Lube Attendant Relationship Specialty Start Date End Date Ector Malik MD [address] [facility] [address] [place] [address] PCP - General Internal Medicine 09/21/19 Katlin Lorenzo NP [address] [facility] [address] [place] [address] Nurse Practitioner Nurse Practitioner 10/22/21 Hui Dickey MD [address] [facility] [address] [place] [address] Medical Oncologist/Nephrology Nurse Hematology and Oncology 10/29/21 Efren Joseph MD [address] [facility] [address] [place] [address] Surgeon Thoracic Surgery 11/16/21 Val Roldan MD [address] [facility] [place] [address] Radiation Oncologist Radiation Oncology 11/20/21 Elma Nieto NP [address] [facility] [address] [place] [address] Nurse Practitioner Radiation Oncology 03/18/23
--- OUTSIDE RECORDS SUMMARY | 2024-09-25 14:26 | XMS_ITS | Clinical Summary ---
Author Organization [facility] Address [address] [place] [address] [place] [address] Care Team Providers Care Motor Equipment Commanding Officer Name Role Phone Erica Malik MD Primary Care Provider Allergies Active Allergy Reactions Criticality Noted Date Comments Codeine Nausea and Vomiting Low 10/12/2019 Medications topiramate (TOPAMAX) 200 mg tablet topiramate 200 mg tablet 10/10/19 20 Active traZODone (DESYREL) 50 mg tablet trazodone 50 mg tablet Active sertraline (ZOLOFT) 50 mg tablet sertraline 50 mg tablet 09/22/19 20 Active rosuvastatin (CRESTOR) 40 mg tablet rosuvastatin 40 mg tablet Active montelukast (SINGULAIR) 10 mg tablet every 24 hours. 09/22/19 20 Active furosemide (LASIX) 20 mg tablet furosemide 20 mg tablet 09/07/19 20 Active fluticasone propionate (FLONASE) 50 mcg/spray [place], Suspension nasal inhaler fluticasone propionate 50 mcg/actuation nasal spray,suspension Active ergocalciferol (VITAMIN D2) 50,000 unit capsule ergocalciferol (vitamin D2) 1,250 mcg (50,000 unit) capsule Take 1 capsule *WEEKLY* for 8 weeks. Active budesonide-formo teroL (SYMBICORT) 160-4.5 mcg/actuation HFA Aerosol Inhaler Symbicort 160 mcg-4.5 mcg/actuation HFA aerosol inhaler 09/22/19 20 Active albuterol HFA 90 mcg inhaler Ventolin HFA 90 mcg/actuation aerosol inhaler 10/10/19 20 Active albuterol (PROVENTIL,DANNY LINDA) 2.5 mg /3 mL (0.083 %) Solution for Nebulization albuterol sulfate 2.5 mg/3 mL (0.083 %) solution for nebulization USE 1 VIAL IN NEBULIZER EVERY 4 HOURS - and as needed Active varenicline (CHANTIX) 0.5 mg (11)- 1 mg (42) tablets STARTER dose pack Take as directed on package. 53 Tablet 05/22/20 20 Active varenicline (Chantix Starting Month Box) 0.5 mg (11)- 1 mg (42) tablets STARTER dose pack Chantix Starting Month Box 0.5 mg (11)-1 mg (42) tablets in dose pack Active Active Problems Problem Noted Date Diagnosed Date Erythrocytosis 05/22/2020 Family History Medical History Relation Name Comments Diabetes Father Cancer Mother Diabetes Sister 1 Relation Name Status Comments Brother 1 Alive Brother 2 Alive Brother 3 Daughter Alive Father Mother Sister 1 Alive Sister 2 Alive Son 1 Alive Son 2 Social History Tobacco Use Types Packs/Day Years Used Date Smoking Tobacco: Every Day Cigarettes 1 25 Smokeless Tobacco: Never Alcohol Use Standard Drinks/Week Comments Yes 0 (1 standard drink = 0.6 oz pur e alcohol) occassionlly Comments No Sex and Gender Information Value Date Recorded Sex Assigned at Not on file Legal Sex Female 2:43 PM CDT Gender Identity Not on file Sexual Orientation Not on file Last Filed Vital Signs Vital Sign Reading Time Taken Comments Blood Pressure 138/76 05/30/2020 2:39 PM CDT Pulse 93 05/30/2020 2:39 PM CDT Temperature 36.7 ??C (98.1 ??F) 05/30/2020 2:39 PM CD T Respiratory Rate - - Oxygen Saturation 98% 05/30/2020 2:39 PM CDT Inhaled Oxygen Concentration - - Weight 91.1 kg (200 lb 14.4 oz) 05/30/2020 2:39 PM CDT Height 157.5 cm (5' 2 ) 05/30/2020 2:39 PM CDT Body Mass Index 36.75 05/30/2020 2:39 PM CDT Plan of Treatment Health Maintenance Due Date Last Done Comments DTAP/TDAP/TD VACCINES (1 - Tdap) 02/06/1984 HEPATITIS B VACCINES (1 of 3 - 19+ 3-dose series) 04/1984 CERVICAL CANCER SCREENING 1995 BREAST CANCER SCREENING 2005 COLORECTAL SCREENING 2010 Colorectal Cancer Screening 2010 FIT-DNA Q 3 years 2010 FIT/FOBT Q 1 year 2010 Flex Sig/CT Colonography Q 5 years 2010 ZOSTER VACCINE (1 of 2) 2015 INFLUENZA VACCINE (#1) 2024 05/30/2016 Care Teams Motor Equipment Commanding Officer Relationship Specialty Start Date End Date Erica Malik MD PCP - General Internal Medicine 05/22/20
== END 2024-09-25 13:40 | disposition home or self-care (01) ==
LOC: ANHAUDIO 13:39
PROVIDERS: PCP Internal Medicine; Visit Provider Internal Medicine
DX: H90.3 Sensorineural hearing loss, bilateral (principal); H93.13 Tinnitus, bilateral; H93.92 Unspecified disorder of left ear; Z85.9 Personal history of malignant neoplasm, unspecified; Z92.3 Personal history of irradiation
CPT/HCPCS: 92557; 92567